=== PATIENT | male | born 1955 | race Caucasian/White ===

== ENCOUNTER 2016-11-13 11:36 | Day surgery (SDC) | payer BC ==
[~2016-11-13] VITALS: Ht 185.5 cm; Wt 127.0 kg
[2016-11-13] VITALS (11 sets, daily range): BP systolic 113–122; BP diastolic 81–93; PULSE 56–71; TEMP 98.3
[~2016-11-13 11:36] MED LIST: CORDARONE200 MG/TAB PO; FISH OIL500 MG PO; HCTZ 25MG TAB25 MG PO; NORVASC 10MG10 MG PO; NORVASC 5MG5 MG/TAB PO; PRADAXA 150MG150 MG PO; PRINIVIL40 MG PO
[2016-11-13] MEDS ORDERED: TAMBOCOR 1100 MG/TAB PO (12:18)
[2016-11-13 12:19] LABS: INR 1.3 (0.8-3.0); PROTHROMBIN TIME 14.1 SECONDS (9.7-12.8)
[2016-11-13 12:54] LABS: THYROID STIMULATING HORMONE 1.1 uIU/mL (0.465-4.680)
== END 2016-11-13 14:30 | disposition home or self-care (01) ==
LOC: COL.CAR 11:36
PROVIDERS: Internal Medicine Cardiovascular Disease
DX: I48.91 Unspecified atrial fibrillation (principal); I10 Essential (primary) hypertension; E78.5 Hyperlipidemia, unspecified; G47.33 Obstructive sleep apnea (adult) (pediatric); Z86.73 Personal history of transient ischemic attack (TIA), and cerebral infarction without residual deficits; I71.2 Thoracic aortic aneurysm, without rupture; Z80.42 Family history of malignant neoplasm of prostate; Z79.899 Other long term (current) drug therapy; M47.9 Spondylosis, unspecified; E66.01 Morbid (severe) obesity due to excess calories; K57.30 Diverticulosis of large intestine without perforation or abscess without bleeding; G89.29 Other chronic pain; M54.5 Low back pain
CPT/HCPCS: J2250; J3010; J7030

== ENCOUNTER 2017-04-25 08:57 | Day surgery (SDC) | payer BC ==
[~2017-04-25] VITALS: Ht 185.4 cm; Wt 131.6 kg
[2017-04-25] VITALS (7 sets, daily range): BP systolic 116–126; BP diastolic 84–97; PULSE 50–100; TEMP 98.5
[~2017-04-25 08:57] MED LIST changes: +TAMBOCOR 1100 MG/TAB PO
[2017-04-25 09:48] LABS: HEMATOCRIT 43.1 % (42.0-52.0); HEMOGLOBIN 14.5 g/dl (13.5-18.0); MEAN CELL VOLUME 83 fl (80.0-100.0); MEAN CORPUSCULAR HEMOGLOBIN 28 pg (27.0-31.0); MEAN CORPUSCULAR HGB CONC 34 g/dl (33.0-37.0); MEAN PLATELET VOLUME 10.1 fl (7.4-10.4); PLATELET COUNT 194 K/mm3 (130-400); RED BLOOD COUNT 5.19 M/mm3 (4.20-5.60); WHITE BLOOD COUNT 7.9 K/mm3 (4.8-10.8)
[2017-04-25 09:56] LABS: INR 1.2 (0.8-3.0); PROTHROMBIN TIME 13.5 SECONDS (9.7-12.8)
[2017-04-25 10:29] LABS: CALCIUM 9.1 mg/dL (8.4-10.2); CREATININE, serum 0.95 mg/dL (0.66-1.25); POTASSIUM 3.5 mmol/L (3.4-5.0)
== END 2017-04-25 11:23 | disposition home or self-care (01) ==
LOC: COL.CAR 08:57
PROVIDERS: Internal Medicine Cardiovascular Disease
DX: I48.2 Chronic atrial fibrillation (principal); I48.92 Unspecified atrial flutter; E78.5 Hyperlipidemia, unspecified; G47.33 Obstructive sleep apnea (adult) (pediatric); I10 Essential (primary) hypertension; Z86.73 Personal history of transient ischemic attack (TIA), and cerebral infarction without residual deficits
CPT/HCPCS: J2704; J7120

== ENCOUNTER → 2017-12-19 | Outpatient (CLI) | payer BC | LOC: COL.RAD 08:19 | DX: I77.810 Thoracic aortic ectasia (principal); R91.1 Solitary pulmonary nodule | CPT/HCPCS: Q9967 ==

== ENCOUNTER 2018-12-04 06:20 | Day surgery (SDC) | payer BC ==
[~2018-12-04] VITALS: Ht 185.5 cm; Wt 139.7 kg
[~2018-12-04 06:20] MED LIST changes: -PRADAXA 150MG150 MG PO; +XARELTO20 MG PO
[2018-12-04 07:28] LABS: HEMATOCRIT 39.9 % (42.0-52.0); HEMOGLOBIN 12.7 g/dl (13.5-18.0); MEAN CELL VOLUME 81 fl (80.0-100.0); MEAN CORPUSCULAR HEMOGLOBIN 26 pg (27.0-31.0); MEAN CORPUSCULAR HGB CONC 32 g/dl (33.0-37.0); PLATELET COUNT 246 K/mm3 (130-400); RED BLOOD COUNT 4.94 M/mm3 (4.20-5.60)
[2018-12-04 07:36] LABS: PROTHROMBIN TIME 23.8 SECONDS (9.7-12.8)
[2018-12-04 07:38] LABS: CREATININE, serum 1.01 (0.66-1.25)
[2018-12-04 08:45] VITALS: BP 112/81; PULSE 56; TEMP 97.9
[2018-12-04 09:21] VITALS: BP 106/76; PULSE 61
[2018-12-04 09:40] VITALS: BP 104/73; PULSE 60
[2018-12-04 09:55] VITALS: BP 105/77; PULSE 63
[2018-12-04 10:10] VITALS: BP 105/75; PULSE 62
--- NOTE | 2018-12-04 10:45 | NUR ---
discharge instructions given to pt.pt verbalizes understanding.INT removed,catheter tip intact.
--- NOTE | 2018-12-04 10:47 | NUR ---
Pt escorted out via wheelchair by this nurse.
== END 2018-12-04 11:07 | disposition home or self-care (01) ==
LOC: COL.CAR 06:20
PROVIDERS: Internal Medicine Cardiovascular Disease
DX: I48.92 Unspecified atrial flutter (principal); I10 Essential (primary) hypertension; Z86.73 Personal history of transient ischemic attack (TIA), and cerebral infarction without residual deficits; I48.2 Chronic atrial fibrillation; G89.29 Other chronic pain; M54.5 Low back pain; E78.5 Hyperlipidemia, unspecified; G47.33 Obstructive sleep apnea (adult) (pediatric); E66.01 Morbid (severe) obesity due to excess calories; Z79.01 Long term (current) use of anticoagulants; Z80.42 Family history of malignant neoplasm of prostate; Z82.49 Family history of ischemic heart disease and other diseases of the circulatory system
CPT/HCPCS: J2704